=== PATIENT | female | born 1965 | race Caucasian/White ===

== ENCOUNTER 2016-12-19 06:28 | Day surgery (SDC) | payer OTHER, MEDICARE ==
[2016-12-19] VITALS (10 sets, daily range): BP systolic 107–125; BP diastolic 54–69; PULSE 58–82; RESP 8–17; O2SAT 93–100
[~2016-12-19] VITALS: Ht 162.6 cm; Wt 83.1 kg
[~2016-12-19 06:28] MED LIST: CALC-243 PO; CYAN100082 PO; DICL100G26 TOPICAL; GABA-502 PO; HYDR-4003 PO; LIDO1ADH TP; LORA1TAB PO; Lactated Ringer's 1,000 ML IV SCH; MULT-1018 PO; [UNRECOGNIZED DRUG - CODE] PO
[2016-12-19] MEDS ORDERED: Lidocaine PF 1% 30 mL Inj ONE (06:29)
[2016-12-19] MEDS ORDERED: Ondansetron 2 mg/mL 2 mL Inj ONE (06:29)
[2016-12-19] MEDS ORDERED: fentaNYL-PF 50 mCg/mL 2 mL Inj ONE (06:29)
[2016-12-19] MEDS ORDERED: Dexamethasone 4 mg/mL Inj ONE (06:29)
[2016-12-19] MEDS ORDERED: Propofol 10,000 mCg/mL 20 mL Inj ONE (06:29)
[2016-12-19] MEDS ORDERED: Lactated Ringer's 1,000 ML IV ONE (07:19)
--- NOTE | 2016-12-19 07:48 | PCM.HPANE ---
Patient Data Date of Service: Dec 19, 2016 Surgeon Admitting Provider: Attending Provider:Colton Moreno MD Primary Care Physician:Robert Murcia MD Other Provider: Reason for Visit Left Meniscal Tear Ht/WT & BMI Height (Feet): 5 Height (Inches): 4.00 Weight (Kilograms): 83.090 Body Mass Index 31.00 Allergies Coded Allergies: venlafaxine (Unverified Adverse Reaction, Severe, N&V, 08/24/14) Uncoded Allergies: NSAIDS (Allergy, Unknown, contraindicated r/t bariatric surgery, 12/14/16) Past Anesthesia History Anesthesia History: Positive for:: Anesthesia Reactions (PONV w/ gastrectomy), Fam Anesthesia Reaction (sister was allergic to anes med, doesn't know which one ), Denies:: Abnormal Airway, Difficult Intubation, Fam Malignant Hypertherm, Malignant Hyperthermia Diabetes History Hx Diabetes?: No MRSA MRSA: No Medications Hypertension Medication: No Home Meds Incl Beta Emily: No Reported Medications Calcium Carbonate/Vitamin D3 (Calcium 600 + Vit D Tablet)1 Each Tablet1 Each PO DAILY 12/14/16 Cyanocobalamin (Vitamin B-12) (Liquid B-12)1,000 Mcg/15 Ml Liquid1,000 Mcg PO DAILY 12/14/16 Vitamin D3/Folic Acid (Noxifol-D3 2,500 Unit-1 mg Tab)2,500 Unit-1 Mg Tablet5, 000 Unit PO DAILY 12/14/16 Multivitamin (Multi Vitamin Daily)1 Each Tablet1 Each PO DAILY 30 Days Ref 0 12/14/16 Lidocaine/Menthol (Lidopatch)1 Each Adh..patch1 Each TP DAILY PRN For Pain 12/14/16 Lorazepam 1 Mg Tablet0.5-1 Mg PO HS PRN For Insomnia Ref 0 12/14/16 Hydrocodone-Acetaminophen 5-325 mg 1 Each Tablet1 Tablet PO BID PRN For Pain Ref 0 12/14/16 Gabapentin 300 Mg [id number] Mg PO HS PRN Insomnia Ref 0 12/14/16 Diclofenac Gel 100 Gm Tube1 Applic TOPICAL PRN For Pain #1 TUBE 12/14/16 Discontinued Reported Medications Ibuprofen 800 Mg [id number] Mg PO BID PRN For Pain Ref 0 08/24/14 Lorazepam 0.5 Mg Tablet0.5-1 Mg PO HS PRN For Insomnia Ref 0 08/24/14 Lidocaine (Lidoderm)700 Mg Adh..patch1 Patch TP UD Ref 0 08/24/14 Atorvastatin Calcium 40 Mg [id number] Mg PO DAILY #30 TABLET Ref 0 08/24/14 Gabapentin 300 Mg [id number] Mg PO HS 30 Days Ref 0 08/24/14 Hydrocodone-Acetaminophen 5-325 mg 1 Each Tablet1 Each PO BID PRN For Pain Ref 0 08/24/14 History History of ENT Problems?: No HEENT History: Denies:: Abnormal Airway Cataracts Difficult Intubation Dysphagia Glaucoma Hearing Problem Sinus Problem TMJ Teeth Condition: Broken Teeth Hx of Heart Problems?: No Cardiovascular History: Denies:: AICD Abdominal Aortic Aneurism Atrial Fibrillation Cardiac Surgery Chest Pain Edema Heart Murmur Hypertension Irregular Heartbeat Pacemaker Peripheral Vascular Hx of Respiratory Problem?: No Respiratory History: Denies:: Asthma COPD Oxygen Administration Pneumonia Tuberculosis Use of C-PAP Machine (no longer uses, weight loss surgery) Use of Inhalers / NEBS Hx Neurologic Problems?: No Neurological History: Denies:: CVA Headaches Multiple Sclerosis Parkinson's Disease Seizures Hx of GI Problems?: Yes Gastrointestinal History: Denies:: Cirrhosis Gastroesphageal Reflux Heartburn Hepatitis Other GI Pertinent History: gastric sleeve done February 2016- has had 60 lb weight loss since Hx of Problems?: No Genitourinary History: Denies:: Kidney Stones Urinary Tract Infection Female Hx: Denies:: Currently (hysterectomy) Problems with Breasts? Skin History: Denies:: History Skin Disorders? Pressure Ulcers Hx Musculoskeletal Problems?: Yes Musculoskeletal History: Positive for:: Musculoskeletal Trauma (left knee current admission problem) Osteoarthritis Denies:: Back Injury (mild arthritis in back) Fibromyalgia Joint Replacement Myasthenia Gravis Systemic Lupus Hx of Psycho/Social Problems?: Yes Psycho Social History: Positive for:: Anxiety Denies:: Bipolar Disorder Hx Depression Hx Surgeries?: Yes (HYSTEROSCOPY/D&C,D&C,BTL,LT KNEE RPR,LT THUMB RPR,LYMPH NODE BX LT NECK) Hx Any Other Health Problems?: Yes Other History: Positive for:: Hospitalization (CHILDBIRTH) Denies:: Cancer Endocrine Disease Thyroid Disease History Blood Transfusions: Positive for:: Accept Blood Products? Denies:: Blood Transfusions Hx Diabetes: No Hx Alcohol Use: YesAlcoholic Drinks Per Day: 3-4 drinks on weekend (just recently - related to sisters )Hx Substance Use: No Smoking Status: Unknown if Ever Smoker Have You Smoked inLast 12 mo: No Stop/Bang S-Snoring: Do You Snore Loudly: No T-Tired: feel tired, fatigued: No O-Obsered: Observed not breath: No P-Blood Pressure: treated: No B- Body Mass Index > 35 kg/m2: No A- Age over 50: Yes N- Neck Large Circumference: No G- Gender Male: No DENILSON Total Score: 1 DENILSON Risk Assessment: Low Risk, <3 Yes Risk Assessment Category Category 1A: Patient has history of documented sleep apnea, and HAS NOT received any narcotic, sedative or anesthesia administration during this stay. Category 1B: Patient has history of documented sleep apnea, and HAS received any narcotic , sedative or anesthesia administration during this stay Category 2: Patient has SUSPECTED Obstructive Sleep Apnea, and HAS received any narcotic , sedative or anesthesia administration during this stay. Category 3: Patient has SUSPECTED Obstructive Sleep Apnea and HAS NOT received narcotic, sedative or anesthesia administration during this stay. Category 4: Outpatient in Procedural Areas with known sleep apnea or who screen positive for High Risk via the STOP/BANG questionnaire. Exam Exam Vital Signs Vital Signs Date Time Temp Pulse Resp B/P Pulse Ox O2 Delivery O2 Flow Rate FiO2 12/19/16 07:09 36.1 67 17 107/54 100 General Appearance: Alert, Oriented X3, Cooperative, No Acute Distress HEENT/AIRWAY: MP 2 Lungs: Clear to Auscultation, Normal Air Movement Heart: Exam Unremarkable, Regular Rate/Rhythm, No Murmurs/Rubs/Gallops Meds/Labs/Diagnostics Admission Meds Current Medications Lactated Ringer's (Lr) 1,000 ml @ ud STK-MED ONCE IV Last administered on 12/19t 07:19; Start 12/19/16 at 07:19; Stop 12/19/16 at 07:20; Status DC Plan Impression Patient chart reviewed, patient interviewed and anesthestic plan with risks, benefits, and alternatives discussed, and informed consent obtained. NPO Status: 08/24@1999, water & black coffee @0530 ASA Physical Status: ASA2 Mod Systemic Disease Anesthetic Plan: GA Bene/Risks/Altern/Consents: Yes HP Complete Prior to Induction: Yes Vincent Tellez MD Dec 19, 2016 07:48
[2016-12-19] MEDS: CeFAZolin Inj 2 GM in IV Premix 1 EACH IV ONE ×2 (08:24→08:28)
[2016-12-19] MEDS ORDERED: Lactated Ringer's 500 ML IV PRN (08:43)
[2016-12-19] MEDS ORDERED: Lactated Ringer's 1,000 ML IV SCH (08:43)
[2016-12-19] MEDS ORDERED: Atropine 0.4 mg/mL Inj IVPUSH PRN (08:45)
[2016-12-19] MEDS ORDERED: Labetalol 5 mg/mL 4 mL Inj IV PRN (08:45)
[2016-12-19] MEDS ORDERED: MetoCLOpramide 5 mg/mL 2 mL Inj IVPUSH PRN (08:45)
[2016-12-19] MEDS ORDERED: hydrALAZINE 20 mg/mL Inj IVPUSH PRN (08:45)
[2016-12-19] MEDS ORDERED: Ondansetron 2 mg/mL 2 mL Inj IVPUSH PRN (08:45)
[2016-12-19] MEDS ORDERED: Phenylephrine 10,000 mCg/mL Inj IVPUSH PRN (08:45)
[2016-12-19] MEDS ORDERED: HYDROmorphone 1 mg/mL Inj IVPUSH PRN (08:45)
[2016-12-19] MEDS ORDERED: fentaNYL-PF 50 mCg/mL 2 mL Inj IVPUSH PRN (08:45)
[2016-12-19] MEDS ORDERED: EPHEDrine Sulfate 50 mg/mL Inj IVPUSH PRN (08:45)
[2016-12-19] MEDS ORDERED: Ropivacaine-PF 0.5% 30 mL Inj INFILTRATE ONE (08:55)
--- NOTE | 2016-12-19 09:06 | PCM.ANEP1 ---
Post Anesthesia Phase 1 PACU Phase 1 Assessment Date of Service: Dec 19, 2016 Vital Signs 36.2 115/62 89 16 94% RA Anesthetic Administered: GA Level of Alertness: Sleepy, easy to arouse KHOURY's with Equal Strength: Yes Pain: No Nausea or Vomiting: No Oxygen Delivery: Room Air Lungs: Clear to Auscultation, Normal Air Movement Vincent Tellez MD Dec 19, 2016 09:06
[2016-12-19] MEDS ORDERED: Ketorolac 15 mg/mL Inj IVPUSH ONE (09:20)
[2016-12-19] MEDS ORDERED: HYDROcodone-APAP 5-325 mg Tablet PO PRN (09:20)
--- NOTE | 2016-12-19 09:23 | PCM.ORTHOP ---
Orthopedic Operative Report Date of Service: Dec 19, 2016 Pre Operative Diagnosis left knee medial meniscus tear, chondromalacia Post Operative Diagnosis left knee medial meniscus tear, chondromalacia Procedure left knee arthroscopy, partial medial meniscectomy, chondroplasty, partial synovectomy Surgeon Surgeon: Colton Moreno MD Assistants: None Indication for Procedure left knee medial meniscus tear Findings Per dictation Details of Procedure - left knee arthroscopy, - left knee, partial medial meniscectomy - left knee, chondroplasty - left knee, partial synovectomy INDICATIONS: Ezequiel Smith is a [age] female who has had a history of left knee pain. The patient has failed conservative management. X-rays show the tibiofemoral joints to be preserved with mild DJD. MRI was obtained which reveals medial meniscus tear. The patient has had persistent symptoms and is now brought to the operating room for arthroscopy. The risks, benefits, and alternatives of surgery were discussed with the patient. The risks included but were not limited to infection, bleeding, damage to vessels and nerves, loss of motion, continued pain, re-tear of the meniscus, deep venous thrombosis, and complications due to anesthesia including nerve injury, myocardial infarction, stroke, , etc. The patient stated understanding of the nature of the surgical procedure and gave written and verbal consent to proceed. PROCEDURE: The patient was brought to the operating room and placed supine on the operating room table. After the administration of general anesthesia the patient was placed in the supine position. Examination of the knee revealed no evident instability with a trace effusion. All prominences were padded with appropriately and neurovascular structures protected. The left knee was confirmed to be the appropriate site following surgical time out. The left lower extremity was examined under anesthesia. Range of motion was 0-135 degrees. There was no varus or valgus or anterior or posterior instability. The left lower extremity was then prepped and draped in the usual fashion. Sterile prep and drape was then undertaken of the knee. The knee joint was injected with 20 ccs of 1% Lidocaine, along with 3 ccs of 1 % lidocaine in the medial and lateral portal sites respectively. A standard anterolateral parapatellar stab wound was created. The knee joint was entered with a blunt- tipped obturator, followed by the 30-degree video arthroscope. An anteromedial portal was established under arthroscopic control. A routine arthroscopic survey was performed. The patellofemoral joint showed grade 2/3 chondromalacia which was debrided down to stable tissue with a shaver. The medial joint space was then entered. The articular surfaces showed grade 3 chondromalacia 2cm X 1cm in diameter. A combination of the shaver was used for debridement of this tissue down to stable tissue was undertaken. A posterior horn medial meniscal tear was noted with a small flap. The shaver and the cutting instruments were inserted, and a debridement of the meniscus back to healthy tissue was then undertaken. The ACL and PCL were noted to be intact. The lateral joint space was then entered. The articular surfaces were intact with grade 2/3 chondromalacia. There was a degenerative fraying to the lateral aspect of the lateral meniscus. Moderate synovitis was noted anteriorly in the medial and lateral compartment and debrided with a shaver. The knee was irrigated with an additional 2 liters of lactated Ringer's solution. Excess fluid was drained. The portals were closed with 3-0 nylon as well as xeroform. The knee was injected with 20 mL of 0.5% ropivacaine. A dry sterile dressing was applied, followed by an VINEET hose, soft roll, and ABHI bandage. The patient was awakened in the operating room and transported to the recovery room in satisfactory condition. The patient appeared to tolerate the procedure well. At the completion of surgery the patient had soft compartments , palpable pulses, and brisk capillary refill. There were no complications noted. Grafts, Implants: None Complications There were no periprocedural complications identified. Condition Stable Anesthetic Administered: GA Catheters: None Output, Estimated Blood Loss: 5 Blood Admin during surgery: No Surgical Cast or Splint: Other Surgical Specimen Removed: No Specimen sent to Pathology: No copies to: Colton Moreno MD, Christopher L MD Dec 19, 2016 09:23
[2016-12-19] MEDS ORDERED: HYDROmorphone 0.5 mg/0.5 mL iSecure Syringe ONE (09:34)
--- NOTE | 2016-12-19 10:42 | PCM.ANEP2 ---
Post Anesthesia Evaluation ASA/CMS Post Anesthesia VS in Patient's Normal Range?: Yes Resp Stable; Airway Patent?: Yes CV Function & Hydration Stable: Yes Mental Status Recovered?: Yes Pain control Satisfactory?: Yes N/V Control Satisfactory?: Yes Vincent Tellez MD Dec 19, 2016 10:42
== END 2016-12-19 23:59 | disposition home or self-care (01) ==
LOC: SAS 06:28
PROVIDERS: ATTEND Orthopaedic Surgery
DX: M23.204 Derangement of unspecified medial meniscus due to old tear or injury, left knee (principal); M22.42 Chondromalacia patellae, left knee; E78.5 Hyperlipidemia, unspecified; R73.03 Prediabetes; E55.9 Vitamin D deficiency, unspecified; F41.9 Anxiety disorder, unspecified; E66.9 Obesity, unspecified; Z68.31 Body mass index [BMI] 31.0-31.9, adult; Z87.891 Personal history of nicotine dependence
CPT/HCPCS: 29880; J0690; J1100; J1170; J1885; J2250; J2405; J2795; J3010; J7120

== ENCOUNTER 2017-06-07 19:39 | Emergency (ER) | payer OTHER, MEDICARE ==
[~2017-06-07] VITALS: Ht 162.6 cm; Wt 83.0 kg
[~2017-06-07 19:39] MED LIST changes: -Lactated Ringer's 1,000 ML IV SCH
[2017-06-07] MEDS ORDERED: 0.9% Sodium Chloride 1,000 ML IV ONE (19:40)
--- NOTE | 2017-06-07 19:40 | ED.REPORT ---
HPI-Chest Pain 40 and Over Date of Service Jun 07, 2017 ED Provider: Dr. Wilson The pt is a 51 y/o female with a hx of anxiety who presents to the ED via EMS complaining of substernal chest pain that lasted 15 minutes, onset 90 minutes ago while she was cooking. She initially experienced pain in her jaw bilaterally , which then moved down to her chest. Her pain has resolved in the ED. She has had similar pain before but today's sx were more severe. She denies acid reflux , fever, and cough. There are no other complaints at this time. Nursing Notes Stated Complaint: RESOLVED CHEST PAIN Nursing Notes Reviewed: Yes Allergies: Coded Allergies: venlafaxine (Unverified Adverse Reaction, Severe, N&V, 08/24/14) Uncoded Allergies: NSAIDS (Allergy, Unknown, contraindicated r/t bariatric surgery, 12/14/16) Scheduled Calcium Carbonate/Vitamin D3 (Calcium 600 + Vit D Tablet) 1 Each Tablet 1 EACH PO DAILY Cyanocobalamin (Vitamin B-12) (Liquid B-12) 1,000 Mcg/15 Ml Liquid 1,000 MCG PO DAILY Multivitamin (Multi Vitamin Daily) 1 Each Tablet 1 EACH PO DAILY Vitamin D3/Folic Acid (Noxifol-D3 2,500 Unit-1 mg Tab) 2,500 Unit-1 Mg Tablet 5, 000 UNIT PO DAILY Scheduled PRN Diclofenac Gel (Diclofenac Gel) 100 Gm Tube 1 APPLIC TOPICAL PRN For Pain Gabapentin (Gabapentin) 300 Mg Capsule 300-600 MG PO HS PRN PRN Insomnia Hydrocodone-Acetaminophen 5-325 mg (Hydrocodone-Acetaminophen 5-325 mg) 1 Each Tablet 1 TABLET PO BID PRN PRN For Pain Lidocaine/Menthol (Lidopatch) 1 Each Adh..patch 1 EACH TP DAILY PRN PRN For Pain Lorazepam (Lorazepam) 1 Mg Tablet 0.5-1 MG PO HS PRN PRN For Insomnia General Time Seen by MD: 19:39 Chief Complaint Chest pain Hx Obtained From: Patient Arrived By: Ambulance Sudden in Onset?: Yes Onset Occurred: 1 - 4 hours ago Symptom Duration: 1 - 15 minutes Location: : Substernal Quality: Painful Radiation: : Does not radiate Severity: Current: No pain currently Severity: Maximum: Severe Recent Healthcare: No recent doctor visit Similar Sx Previous: Yes Past Medical History Past Medical History Anxiety Past Surgical History Left knee repair Left thumb repair Reports: Hysterectomy Smoking History Unknown if Ever Smoker Social History Alcohol Use: "Social" Drug Use: Denies drug use Other Social History: Good social support, Ambulatory Status Independent Review of Systems Reports: jaw pain (resolved) Denies: acid reflux Constitutional: Denies: Fever Respiratory: Denies: Non-productive cough Cardiovascular: Reports: Chest pain (resolved) Complete sys rev & neg: except as marked. Physical Exam Initial Vital Signs Vital Signs (First) Date Time Temp Pulse Resp B/P Pulse Ox O2 Delivery O2 Flow Rate FiO2 06/07/17 19:46 36.9 78 18 137/67 98 Room Air Initial VS: Reviewed Head / Eyes: Atraumatic, Normocephalic Neck: Supple, Non-tender, Full range of motion Extremities: Vascular intact, Neuro intact, No swelling, No tenderness Skin: Warm, Dry, No cyanosis Neurologic: Alert, Oriented, Nonfocal General/Constitutional: Awake, Alert, No acute distress, Well appearing, Cooperative Respiratory / Chest: Atraumatic, Breath sounds NL, Breath sounds = bilat, No respiratory distress, No rales, No rhonchi, No wheezing, No chest tenderness, No chest wall deformity Cardiovascular: Heart rate NL, Regular rhythm, Heart sounds NL, No gallop, No murmurs, No rubs Abdomen: Atraumatic, Soft, Non-tender, No guarding, No rebound, BS normoactive Interpretation & Diagnostics Lab Results Interpretation Result Diagram: 06/07/17 1950 06/07/17 1950 Test 06/07/17 19:50 06/07/17 20:53 White Blood Count 9.0th/mm3 (3.8-10.1) Red Blood Count 4.23mil/mm3 (3.90-5.20) Hemoglobin 12.8g/dL (12.0-15.6) Hematocrit 37.7% (35.0-46.0) Mean Corpuscular Volume 89.1fL (81-100) Mean Corpuscular Hemoglobin 30.3pg (27.0-35.0) Mean Corpuscular Hemoglobin Concent 34.0% (32.0-37.0) Red Cell Distribution Width 13.3% (12.3-15.4) Platelet Count 278bil/L (150-400) Neutrophils (%) (Auto) 51.8% (40-74) Lymphocytes (%) (Auto) 37.7% (14-46) Monocytes (%) (Auto) 7.2% (4-12) Eosinophils (%) (Auto) 2.8% (0-5) Basophils (%) (Auto) 0.3% (0-3) Sodium Level 139mEq/L (134-144) Potassium Level 4.1mEq/L (3.5-5.2) Chloride Level 101mEq/L (97-108) Carbon Dioxide Level 21mmol/L (18-29) Blood Urea Nitrogen 27mg/dL (6-24) Creatinine 0.90mg/dL (0.57-1.00) Estimat Glomerular Filtration Rate 94mL/min (>59) Glucose Level 109mg/dL (60-99) Calcium Level 9.2mg/dL (8.5-10.1) Magnesium Level 2.1mg/dL (1.6-2.6) Total Bilirubin 0.2mg/dL (0.0-1.2) Aspartate Amino Transf (AST/SGOT) 32U/L (0-50) Alanine Aminotransferase (ALT/SGPT) 14U/L (0-32) Alkaline Phosphatase 68U/L (25-150) Total Protein 7.2g/dL (6.4-8.4) Albumin 4.0g/dL (3.4-5.0) Troponin T 0.010ug/L (0.0-0.011) ECG Interpretation ECG Interpretation: Field ECG: Sinus rhythm. Rate 82. No acute changes. Time: 18:50 Interpreted by: ED physician Normal ECG Interpretation: Normal ECG w/ rate of... (82) ECG Interpretation: Normal sinus rhythm. Rate 67. No acute changes Time: 19:44 Interpreted by: ED physician Normal ECG Interpretation: Normal ECG w/ rate of... (67) X-Ray Chest Interpretation Chest Xray Interpretation: IMPRESSION: No acute pulmonary process. Dictated by: Leaan Samano M.D. on 06/07/2017 at 20:14 Approved by: Leana Samano M.D. on 06/07/2017 at 20:15 View: Portable, 1 view Interpretation / Wet Read by: Interpret - Radiologist Re-Eval/Medical Decision Source of Hx: Old records Time of Eval: 21:01 Re-Evaluation/Progress Note: Rechecked pt. Discussed lab and imaging results and plan to do repeat labs. All questions answered. The pt understands and agrees with the plan. Time of Eval: 21:41 Re-Evaluation/Progress Note: Rechecked pt. Discussed lab results, imaging results, diagnosis and plan to discharge. Pt understands and agrees with the plan. F/U instruction and RTER warning given. All questions addressed Counseled Regarding: Diagnosis, Lab results, Need for follow-up, When/why to return to ED Discharge & Departure Primary Impression: Chest pain Chest pain type: other chest pain Qualified Code: R07.89 - Other chest pain Disposition: Home Discharge Condition All VS Reviewed: Yes Condition: Stable Additional Instructions: Thank you for entrusting us with your care today. Your lab results and imaging results were reassuring. No dangerous cause of your pain was found today. Take a baby (81mg) Aspirin everyday. Follow up with your primary care provider next week for further evaluation. If you experience more chest pain or any new or concerning symptoms, please return to the emergency department. Referrals: Robert Murcia MD (PCP) Scribe Attestation Portions of this note were transcribed by Danya Redd. I,, personally performed the history,physical exam and medical decision-making;I reviewed and confirmed the accuracy of the information in the transcribed note. Signed by Gino Augustin. 06/07/17 copies to: Robert Murcia MD, Donald L MD Jun 07, 2017 19:39 Danya Redd Jun 07, 2017 19:51
[2017-06-07 19:46] VITALS: BP 137/67; PULSE 78; RESP 18; O2SAT 98
[2017-06-07 19:59] LABS: BASOPHILS % (AUTO) 0.3 % (0-3); EOSINOPHILS % (AUTO) 2.8 % (0-5); MONOCYTES % (AUTO) 7.2 % (4-12); Mean Corpuscular Hemoglobin 30.3 pg (27.0-35.0); Mean Corpuscular Volume 89.1 fL (81-100); NEUTROPHILS % (AUTO) 51.8 % (40-74); Platelet Count 278 bil/L (150-400)
--- NOTE | 2017-06-07 20:16 | DRSVH ---
PROCEDURE: X-RAY CHEST ONE VIEW, PORTABLE ([id number]) INDICATIONS: chest pain TECHNIQUE: One view of the chest was acquired. COMPARISON: None. FINDINGS: Surgical changes and devices: Upper quadrant clips. Lungs and pleura: No pleural effusions or pneumothorax. Lungs are clear. Mediastinum: Mediastinal contours appear normal. Heart size is normal. Bones and chest wall: No suspicious bony lesions. Overlying soft tissues appear unremarkable. IMPRESSION: No acute pulmonary process. Dictated by: Leana Samano M.D. on 06/07/2017 at 20:14 Approved by: Leana Samano M.D. on 06/07/2017 at 20:15
[2017-06-07 20:22] LABS: TROPONIN T < 0.010 ug/L (0.0-0.011)
[2017-06-07 20:32] LABS: Magnesium 2.1 mg/dL (1.6-2.6)
[2017-06-07 21:51] VITALS: BP 126/63; PULSE 62; RESP 18; O2SAT 98
== END 2017-06-07 21:59 | disposition home or self-care (01) ==
LOC: SED 19:39
DX: R07.89 Other chest pain (principal); F41.9 Anxiety disorder, unspecified; Z88.8 Allergy status to other drugs, medicaments and biological substances
CPT/HCPCS: 36415; 71010; 80053; 83735; 84484; 85025; 93005; 96360; 99285; J7030